=== PATIENT | female | born 1985 | race African-American/Black ===

== ENCOUNTER 2017-06-27 08:33 | Emergency (ER) | payer OTHER ==
[~2017-06-27] VITALS: Ht 170.2 cm; Wt 85.3 kg
[2017-06-27] MEDS ORDERED: TYLE325T5 PO (08:45)
[2017-06-27] MEDS ORDERED: IBUP-1114 PO (08:45)
[2017-06-27] MEDS ORDERED: NAPR500T3 PO (08:45)
[2017-06-27] MEDS ORDERED: NORCO, ANEXSIA 5/325MG TABLET (HYDROcodone/ACETAMINOPHEN) PO ONE (09:00)
[2017-06-27] MEDS ORDERED: IBUP80TA PO (09:28)
[2017-06-27 09:38] VITALS: BP 131/70
--- NOTE | 2017-06-27 14:56 | REP ---
PELVIS AND RIGHT HIP: AP view of the pelvis and AP and frogleg views of the right hip are performed and demonstrate no fracture or dislocation. There are minor degenerative changes at the hip joints. IUD is seen in the pelvis. IMPRESSION: No acute fracture or dislocation. Signed by Jimbo Peña MD 06/27/2017 11:57 A
== END 2017-06-27 09:44 | disposition home or self-care (01) ==
LOC: M ED 08:33
DX: S30.0XXA Contusion of lower back and pelvis, initial encounter (principal); S70.01XA Contusion of right hip, initial encounter; W17.89XA Other fall from one level to another, initial encounter; Y92.139 Unspecified place military base as the place of occurrence of the external cause; Y93.9 Activity, unspecified; Y99.1 Military activity

== ENCOUNTER 2018-10-02 14:25 | Emergency (ER) | payer OTHER, SELFPAY ==
[~2018-10-02] VITALS: Ht 167.6 cm; Wt 80.9 kg
[~2018-10-02 14:25] MED LIST: IBUP-1114 PO; IBUP80TA PO; NAPR-885 PO; TYLE325T5 PO
[2018-10-02] MEDS ORDERED: MACR100C43 PO (14:35)
[2018-10-02] MEDS ORDERED: NORCO, ANEXSIA 5/325MG TABLET (HYDROcodone/ACETAMINOPHEN) PO ONE (15:15)
--- NOTE | 2018-10-02 15:40 | REP ---
CT of the brain without IV contrast: There are no comparisons. There is no subdural or epidural hematoma. There is no hemorrhage otherwise. The ventricles are normal size and midline. The cortical stripe is unremarkable. The visualized paranasal sinuses and mastoid air cells are clear. Impression: Essentially negative CT study of the brain. Electronically Signed by Jimbo Landaverde MD 10/02/2018 03:32 P
[2018-10-02] MEDS ORDERED: NORCOTAB PO (16:08)
[2018-10-02 16:19] VITALS: BP 126/72
== END 2018-10-02 16:20 | disposition home or self-care (01) ==
LOC: M ED 14:25
DX: S70.01XA Contusion of right hip, initial encounter (principal); S16.1XXA Strain of muscle, fascia and tendon at neck level, initial encounter; S09.90XA Unspecified injury of head, initial encounter; W00.9XXA Unspecified fall due to ice and snow, initial encounter; Y92.89 Other specified places as the place of occurrence of the external cause; Y93.9 Activity, unspecified; Y99.0 Civilian activity done for income or pay; Z79.899 Other long term (current) drug therapy; Z88.1 Allergy status to other antibiotic agents